=== PATIENT | male | born 1930 | race Two or more races ===

== ENCOUNTER 2016-12-25 00:32 | Emergency (ER) | payer OTHER ==
[~2016-12-25] VITALS: Ht 175.3 cm; Wt 65.8 kg
[2016-12-25 01:08] LABS: Basophils # (auto) 0 uL; Eosinophils # (auto) 0 uL; Eosinophils % (auto) 0.1 % (0.0-7.0); Hemoglobin 10.2 g/dL (13.5-17.5); Mean Platelet Volume 7.8 fL (6.9-10.8)
[2016-12-25 01:09] LABS: Basophils % (auto) 0.4 % (0.0-2.0); Hematocrit 30.5 % (41.0-53.0); Lymphocytes # (auto) 0.7 uL; Lymphocytes % (auto) 7.3 % (10.0-50.0); Mean Corpuscular Hemoglobin 28.2 pg (28.0-32.0); Mean Corpuscular Hgb Conc. 33.5 g/dL (32.0-36.0); Mean Corpuscular Volume 84.2 fL (80.0-100.0); Monocytes # (auto) 1.1 uL; Monocytes % (auto) 10.8 % (0.0-12.0); Neutrophils # (auto) 8.2 uL; Neutrophils % (auto) 81.4 % (37.0-80.0); Platelet Count (auto) 580 10^3/uL (140-450); Red Cell Distribution Width 14.9 % (11.8-14.3)
[2016-12-25 01:29] LABS: BUN/Creatinine Ratio 28.8; Calcium 8.7 mg/dL (8.5-10.1); Potassium 4.5 mmol/L (3.5-5.1)
[2016-12-25 01:32] LABS: Bilirubin, Total 0.5 mg/dL (0.2-1.0); Total Protein 6.9 g/dL (6.4-8.2)
[2016-12-25] MEDS ORDERED: IOHEXOL 350 MG/ML 100ML IJ ONE (02:44)
[2016-12-25 04:09] LABS: INR 1.12 (0.9-1.15); Partial Thromboplastin Time 35.6 sec (22.64-33.71); Prothrombin Time 12.2 sec (9.37-12.3)
[2016-12-25 04:31] LABS: Temperature: 21.8 C (20.0-25.0)
[2016-12-25 08:08] VITALS: BP 107/66
== END 2016-12-25 08:32 | disposition short-term general hospital (02) ==
LOC: EDBD 00:32 → ER 00:41
DX: J90 Pleural effusion, not elsewhere classified (principal); E87.1 Hypo-osmolality and hyponatremia; N28.9 Disorder of kidney and ureter, unspecified; E11.65 Type 2 diabetes mellitus with hyperglycemia; E11.9 Type 2 diabetes mellitus without complications; Z95.1 Presence of aortocoronary bypass graft; I50.9 Heart failure, unspecified
CPT/HCPCS: 36415; 71010; 71260; 80053; 83880; 84484; 85025; 85610; 85730; 93005; 94761; 99285; Q9967